=== PATIENT | female | born 1970 | race Caucasian/White ===

== ENCOUNTER 2025-02-17 10:53 | Inpatient (IN) | payer BC ==
[~2025-02-17] VITALS: Ht 167.6 cm; Wt 83.2 kg
[2025-02-17 12:09] LABS: MEAN PLATELET VOLUME 7.7 FL (7.4-10.4); RED CELL DISTRIBUTION WIDTH 15.7 % (11.5-14.5)
[2025-02-17 12:27] LABS: CREATININE 3.03 MG/DL (0.40-0.90); TOTAL CARBON DIOXIDE 24.1 MMOL/L (24-32); eCRCL 20 ML/MIN; eGFR 16 ML/MIN
[2025-02-17 12:56] LABS: PLATELET ESTIMATE NORMAL
[2025-02-17 12:57] LABS: LARGE PLATELETS FEW
[2025-02-17 14:24] LABS: LEUKOCYTE ESTERASE ,URINE LARGE (Neg); NITRITES, URINE NEGATIVE (Neg); OCCULT BLOOD,URINE SMALL (Neg)
--- NOTE | 2025-02-17 14:31 | Physician Documentation ---
History of Present Illness General Chief Complaint: Vomiting Stated Complaint: VOMITING Time Seen by MD: 14:30 OK to notify your PCP?: No Source: patient, RN notes reviewed Mode of Arrival: Ambulatory Exam Limitations: no limitations History of Present Illness Initial Comments 54 old female, with a history of GERD, presents complaining of nausea and vomiting after she eats for the last 2-3 weeks. She took a dose of Zofran last night with temporary improvement of nausea. She also has had burning pain in her esophagus after eating, described as really bad acid reflux. She denies any fever, abdominal pain, blood in her vomit, bloody or black stools, or lightheadedness. She denies history of cholecystectomy. Medication Reconciliation Allergies: Coded Allergies: No Known Allergies (Unverified , 02/17/25) Scheduled Amlodipine* (Norvasc*), 2 PO DAILY, (Reported) Levothyroxine Sodium* (Synthroid*), 112 MCG PO DAILY, (Reported) Progesterone,Micronized (Progesterone), 1 CAP PO HS, (Reported) Ramipril* (Altace*), 2 CAP PO DAILY, (Reported) Scheduled PRN Trazodone HCl (Trazodone HCl), 2 TAB PO HS PRN for sleep, (Reported) Past Medical History Past Medical History: *GI/HEPATOBILIARY*, GERD Past Surgical History: noncontributory Drug Use: none Lives In: Home Review of Systems All Other Systems at this time: Reviewed and Negative ROS As stated above in the HPI, otherwise all systems are reviewed and negative. Physical Exam Physical Exam Vital Signs: RN Vital Signs have been reviewed: Yes, Temperature: 97.0, Source: Temporal, Heart Rate: 88, Respiratory Rate: 18, BP: 98/59, Pulse Oximetry: 99, Weight: 83.180 Oxygen Flow Rate: 0 Pulse Oximetry Reflects: adequate oxygenation Physical Exam VITALS: Reviewed and as above. GENERAL: Alert, no apparent distress. HEENT: Normocephalic, atraumatic, PERRL, EOMI, dry mucosa RESPIRATORY: Lungs clear, normal breath sounds, no respiratory distress. CHEST: No accessory muscle use, no retractions CV: Regular rate, rhythm, no edema, no murmur, No: JVD GI: Epigastric tenderness. Soft, bowels sounds present, no rebound, guarding, or rigidity BACK: No CVA tenderness, or swelling MUSCULOSKELETAL No deformities, no edema SKIN: Warm and dry, no rash NEURO: Oriented x4, No motor or sensory deficit PSYCH: Normal mood and affect, no agitation Progress Progress Note 1506: Patient's reports patient has had two siblings of lymphoma. 1709: Case discussed with internal medicine resident, who agrees to evaluate the patient for admission. Results/Orders Reviewed/noted all lab results: Yes Results/Orders Orders - OHCHRISTINA JOHNSON MD Cult Urine + [place] Ct (02/17/25 14:40) Ct Abdomen Pelvis (02/17/25 14:54) Culture Blood (02/17/25 ) Chest,Single View (02/17/25 15:43) Ultrasound Of Abdomen (02/17/25 15:48) Page Hospitalist (02/17/25 16:50) Fill Out Med Reconciliation (02/17/25 16:50) Completed Orders - CHRISTINA GIANG MD Cbc/Diff (02/17/25 10:58) Lipase (02/17/25 10:58) CMP (02/17/25 10:58) Ua W/Microscopic, Cult If Ind (02/17/25 14:01) Ct Abdomen Pelvis (02/17/25 14:54) Ceftriaxone 2gm/D5w 50ml Bag (Rocephin 2 (02/17/25 14:45) Lacticsepsis (02/17/25 15:06) Normal Saline 1000ml (0.9% Sodium Chlori (02/17/25 15:35) Stat Ekg (02/17/25 ) Hs Troponin I W Calculations (02/17/25 15:41) Chest,Single View (02/17/25 15:43) Ultrasound Of Abdomen (02/17/25 15:48) Mag & Alum Hydrox/Simeth Susp (Maalox Or (02/17/25 17:10) Vital Signs 02/17/25 02/17/25 02/17/25 02/17/25 10:56 14:19 14:21 15:20 Temp 97.0 97.0 Pulse 99 88 90 Resp 18 14 18 18 B/P (MAP) 107/66 98/59 (72) 95/54 (68) Pulse Ox 98 99 99 O2 Flow Rate 0 0 0 1002/17/25 02/17/25 02/17/25 15:56 16:14 17:33 17:40 Temp 97.0 97.0 97.0 Pulse 91 86 90 Resp 15 12 18 B/P (MAP) 99/55 (70) 105/72 (83) 92/58 (69) 106/70 (82) Pulse Ox 96 100 98 O2 Flow Rate 0 0 0 Laboratory Tests Test 02/17/25 11:26 02/17/25 14:01 02/17/25 15:09 02/17/25 16:06 White Blood Count 13.2 H Red Blood Count 3.92 L Hemoglobin 15.2 Hematocrit 43.8 Mean Corpuscular Volume 111.7 H Mean Corpuscular Hemoglobin 38.9 H Mean Corpuscular Hemoglobin Concent 34.8 Red Cell Distribution Width 15.7 H Platelet Count 278 Mean Platelet Volume 7.7 Neutrophils (%) (Auto) 85.6 H Lymphocytes (%) (Auto) 6.9 L Monocytes (%) (Auto) 7.3 Eosinophils (%) (Auto) 0 Basophils (%) (Auto) 0.2 Neutrophils # (Auto) 11.3 H Lymphocytes # (Auto) 0.9 L Monocytes # (Auto) 1.0 H Eosinophils # (Auto) 0.0 Basophils # (Auto) 0.0 CBC Comment Platelet Estimate Normal Large Platelets Few Red Blood Cell Morphology Perf Polychromasia Basophilic Stippling Macrocytosis 2+ Sodium Level 134 L Potassium Level 3.7 Chloride Level 85 L Carbon Dioxide Level 24.1 Anion Gap 25 H Blood Urea Nitrogen 29 H Creatinine 3.03 H Estimated GFR/1.73 m2 16 BUN/Creatinine Ratio 9.6 L Glucose Level 137 H Calcium Level 9.5 Total Bilirubin 1.1 H Aspartate Amino Transf (AST/SGOT) 35 Alanine Aminotransferase (ALT/SGPT) 26 Alkaline Phosphatase 43 L Total Protein 8.2 Albumin 3.9 Globulin 4.3 Albumin/Globulin Ratio 0.9 L Lipase > 375 H Chemistry Comments Urine Specimen Description Cln catch midstream Urine Color Yellow Urine Clarity Turbid Urine pH 6.0 Urine Specific [place] 1.020 Urine Protein >=300 H Urine Glucose (UA) Negative Urine Ketones 15 H Urine Occult Blood Small Urine Nitrite Negative Urine Bilirubin Moderate Urine Urobilinogen 0.2 Urine Leukocyte Esterase Large H Urine RBC 3-10 Urine WBC Tntc H Urine Squamous Epithelial Cells Few Urine Bacteria 1+ Urine Culture Indicated Indicated Volume Urine Centrifuged 10 ml Urine Comment Lactic Acid Level 1.7 Troponin I High Sensitivity 8 Microbiology Date/Time Source Procedure Growth Status 02/17/25 14:40 Urine Clean Catch Midstream Urine Culture - Preliminary Gram Negative Gianfranco Resulted EKG/XRAY/CT/US/VASC/MRI EKG : Additional Comment 1536: EKG interpreted by myself to show NSR at a rate of 83bpm. Normal axis. Slight ST depression in II, III, aVF, V3-V6. Chest X-Ray : Additional Comments EXAM: DI CHEST,SINGLE VIEW HISTORY: hypotension COMPARISON: None TECHNIQUE: Portable upright AP view of the chest was performed. FINDINGS: No pneumothorax, consolidative infiltrates, or pulmonary edema. The heart is not enlarged. The aortic arch is calcific. IMPRESSION: No acute intrathoracic process. Reviewed by myself, Dr. Giang. CT : Interpreted By: radiologist CT: abdomen/pelvis With Contrast?: No Impression CLINICAL INFORMATION: 54 years old, Female; renal failure elevated wbc. TECHNIQUE: Axial CT images of the abdomen and pelvis were obtained without IV contrast. Coronal and sagittal reformatted images were obtained, reviewed, and stored. Evaluation of the parenchymal organs is limited without IV contrast. Evaluation of the bowel and mesentery is limited without oral contrast. All CT scans at this medical facility are performed using dose modulation techniques as appropriate to a performed exam including the following: Automated exposure control was utilized; adjustment of the MA and/or KV according to patient size; and use of iterative reconstruction technique. CTDIvol = 28.36 mGy DLP = 1554.77 mGy-cm COMPARISON: None FINDINGS: Lung bases: Lung bases are clear. Liver: Hepatic steatosis. Biliary: Distended gallbladder with punctate calcified gallstone visualized. No biliary ductal dilatation. Spleen: Unremarkable. Pancreas: Grossly unremarkable in its noncontrast enhanced appearance. Adrenal glands: Unremarkable. No mass. Kidneys: No hydronephrosis. Multiple bilateral renal calculi, including staghorn calculus in the lower pole of the left kidney measuring up to 1 cm in greatest dimension. No obstructing calculi visualized. Aorta/Vascular: Moderate arterial calcification. No abdominal aortic aneurysm. Lymph nodes: No mass or lymphadenopathy. Bowel/mesentery: Nonspecific nondilated fluid-filled small bowel loops. No small bowel obstruction. No free air. Small amount of free fluid in the pelvis. There is mild edema in the abdominal mesentery. Appendix is visualized and appears unremarkable. Pelvic organs: Grossly unremarkable. Bladder: Underdistended and not well evaluated. Abdominal wall: No mass or hernia. Bones: No acute fracture or suspicious intraosseous lesion. IMPRESSION: 1. Distended gallbladder with punctate calcified gallstone visualized. C orrelate with clinical findings. If clinically indicated, ultrasound could be obtained to further evaluate. 2. Hepatic steatosis. 3. Bilateral nonobstructing renal calculi. No hydronephrosis or obstructing calculi. 4. Nonspecific nondilated fluid-filled small bowel loops. Findings may be seen with ileus or enteritis in the appropriate clinical setting. No small bowel obstruction. 5. Mild edema in the abdominal mesentery, may be inflammatory in nature. Correlate with clinical findings. Small amount of free fluid in the pelvis. 6. Additional findings as described above. Reviewed by myself. Ultrasound : Interpreted By: radiologist Ultrasound of: abdomen Impression Technique: Real-time ultrasound imaging of the abdomen was performed with gr ayscale and color Doppler. Indication: abdominal pain Comparison: None Findings: Liver measures 18.9 cm. It is increased in echogenicity and echotexture without focal mass. Portal vein is normal in caliber and demonstrates normal hepatopetal flow. Gallbladder demonstrates cholelithiasis. There is also sludge. There is no pericholecystic fluid. The wall thickness is normal. The common bile duct measures 3 mm. No intrahepatic biliary ductal dilatation. The right kidney measures 10.1 cm. There is no hydronephrosis or sonographic evidence of nephrolithiasis. Pancreas is obscured. Impression: Cholelithiasis and sludge Echogenic liver which can be seen with hepatic steatosis, cirrhosis. Hepatomegaly Reviewed by myself (Dr. Giang) Medical Decision Making Additional information obtaine: old records (No prior visits to this ER) Findings The patient is a 54-year-old female who presents with the abdominal pain the patient has punctate gallstones but there was no evidence of obstruction based on her ultrasound and her labs, the patient also has renal insufficiency and acute kidney injury, the patient was hydrated in the emergency room she was given pain medication as well the patient has been discussed with the hospitalist service the patient's prior hospitalizations has been reviewed her pulse oximetry was interpreted as normal and adequate her imaging of the ultrasound as well as imaging of the CT scan were reviewed the patient will be admitted Differential Diagnosis Biliary colic, choledocholithiasis, cholangitis, enteritis, diverticulitis, gastritis Departure Time of Disposition: 16:50 Disposition: 09 ADMITTED INPATIENT Admitted to Inpatient Unit: yes, to hospitalist Impression: Primary Impression: Pancreatitis Qualified Codes: K85.90 - Acute pancreatitis without necrosis or infection, unspecified Additional Impressions: Renal failure Qualified Codes: N19 - Unspecified kidney failure UTI (urinary tract infection) Qualified Codes: N39.0 - Urinary tract infection, site not specified Condition: Fair Referrals: NO PRIMARY CARE PROVIDER (PCP) Critical Care Note Total Time (mins): 45 Critical Care Note Critical Care Time: 45 minutes Treatments/Evaluations: Close monitoring and treatment of unstable vital signs, cardiorespiratory, and neurologic status, while maintaining tight balance of fluid, respiratory, and cardiac interventions. This time includes discussing the case with the patient and the patient's family. This time does not include all procedures stated elsewhere in this record. This time also includes reviewing old records, labs and radiological studies. This time includes examining and re- examining the patient. Additionally, this time also includes arranging care with admitting and consulting physicians. Signature Scribe Signature: Scribed for Christina Giang MD by Naa Klein . 02/17/25 14:51 Attestation: The note accurately reflects work and decisions made by me.Christina Giang MD 02/18/25 17:45 CHRISTINA GIANG MD Feb 17, 2025 14:31 NAA MOREL Feb 17, 2025 14:58
[2025-02-17 14:40] LABS: UA COLLECTION TYPE CLN CATCH MIDSTREAM
[2025-02-17 14:41] LABS: SQUAMOUS EPITHELIAL CELL,UR FEW /LPF (FEW)
[2025-02-17] MEDS: CefTRIAXone 2gm/D5W 50ml BAG 50 ML IV ONE (15:14)
--- NOTE | 2025-02-17 15:39 | ELECTROCARDIOGRAPH REPORT ---
[facility] Test Date: 2025-02-17 Test Time: 15:36:28 Pat Name: ALISTAIR SANCHES Department: [facility]- Patient ID: [id number] Room: [place] [id number] Gender: F [employer]ldozer Operator: : [id number] Requested By: CHRISTINA DUFF Order Number: [id number] Reading MD: Dr. Gurjit Boucher Measurements Intervals [place] Rate: 83 P: 61 WI: 149 QRS: 69 QRSD: 94 T: 0 QT: 421 QTc: 495 Interpretive Statements Sinus rhythm Atrial premature complex Borderline repolarization abnormality Borderline prolonged QT interval Electronically Signed On 02-20-2025 7:41:[address] Gurjit Boucher Please click the below link to view image of tracing.
[2025-02-17] MEDS: normal saline 1000ML IV soln IVB ONE (15:41)
--- NOTE | 2025-02-17 15:46 | RADIOLOGY REPORT ---
CLINICAL INFORMATION: 54 years old, Female; renal failure elevated wbc. TECHNIQUE: Axial CT images of the abdomen and pelvis were obtained without IV contrast. Coronal and sagittal reformatted images were obtained, reviewed, and stored. Evaluation of the parenchymal organs is limited without IV contrast. Evaluation of the bowel and mesentery is limited without oral contrast. All CT scans at this medical facility are performed using dose modulation techniques as appropriate to a performed exam including the following: Automated exposure control was utilized; adjustment of the MA and/or KV according to patient size; and use of iterative reconstruction technique. CTDIvol = 28.36 mGy DLP = 1554.77 mGy-cm COMPARISON: None FINDINGS: Lung bases: Lung bases are clear. Liver: Hepatic steatosis. Biliary: Distended gallbladder with punctate calcified gallstone visualized. No biliary ductal dilatation. Spleen: Unremarkable. Pancreas: Grossly unremarkable in its noncontrast enhanced appearance. Adrenal glands: Unremarkable. No mass. Kidneys: No hydronephrosis. Multiple bilateral renal calculi, including staghorn calculus in the lower pole of the left kidney measuring up to 1 cm in greatest dimension. No obstructing calculi visualized. Aorta/Vascular: Moderate arterial calcification. No abdominal aortic aneurysm. Lymph nodes: No mass or lymphadenopathy. Bowel/mesentery: Nonspecific nondilated fluid-filled small bowel loops. No small bowel obstruction. No free air. Small amount of free fluid in the pelvis. There is mild edema in the abdominal mesentery. Appendix is visualized and appears unremarkable. Pelvic organs: Grossly unremarkable. Bladder: Underdistended and not well evaluated. Abdominal wall: No mass or hernia. Bones: No acute fracture or suspicious intraosseous lesion. IMPRESSION: 1. Distended gallbladder with punctate calcified gallstone visualized. Correlate with clinical findings. If clinically indicated, ultrasound could be obtained to further evaluate. 2. Hepatic steatosis. 3. Bilateral nonobstructing renal calculi. No hydronephrosis or obstructing calculi. 4. Nonspecific nondilated fluid-filled small bowel loops. Findings may be seen with ileus or enteritis in the appropriate clinical setting. No small bowel obstruction. 5. Mild edema in the abdominal mesentery, may be inflammatory in nature. Correlate with clinical findings. Small amount of free fluid in the pelvis. 6. Additional findings as described above.
--- NOTE | 2025-02-17 16:20 | RADIOLOGY REPORT ---
EXAM: DI CHEST,SINGLE VIEW HISTORY: hypotension COMPARISON: None TECHNIQUE: Portable upright AP view of the chest was performed. FINDINGS: No pneumothorax, consolidative infiltrates, or pulmonary edema. The heart is not enlarged. The aortic arch is calcific. IMPRESSION: No acute intrathoracic process.
--- NOTE | 2025-02-17 17:08 | RADIOLOGY REPORT ---
Technique: Real-time ultrasound imaging of the abdomen was performed with grayscale and color Doppler. Indication: abdominal pain Comparison: None Findings: Liver measures 18.9 cm. It is increased in echogenicity and echotexture without focal mass. Portal vein is normal in caliber and demonstrates normal hepatopetal flow. Gallbladder demonstrates cholelithiasis. There is also sludge. There is no pericholecystic fluid. The wall thickness is normal. The common bile duct measures 3 mm. No intrahepatic biliary ductal dilatation. The right kidney measures 10.1 cm. There is no hydronephrosis or sonographic evidence of nephrolithiasis. Pancreas is obscured. Impression: Cholelithiasis and sludge Echogenic liver which can be seen with hepatic steatosis, cirrhosis. Hepatomegaly
[2025-02-17] MEDS: mag hydrox/Alum hydrox/simeth 30ml oral suspension PO ONE (17:30)
[2025-02-17] MEDS ORDERED: mag hydrox/Alum hydrox/simeth 30ml oral suspension PO PRN (17:45)
[2025-02-17] MEDS ORDERED: magnesium hydroxide 30ml (MOM) UD suspension PO PRN (17:45)
[2025-02-17] MEDS ORDERED: magnesium sulf-water 2g/50mL 50 ML IV PRN (17:45)
[2025-02-17] MEDS ORDERED: ondansetron/PF 4mg/2ml inj IV PRN (17:45)
[2025-02-17] MEDS ORDERED: magnesium sulf-water 4G/100mL 100 ML IV PRN (17:45)
[2025-02-17] MEDS ORDERED: magnesium Cl slow-release 64mg tablet PO PRN (17:45)
[2025-02-17] MEDS: normal saline 1000ml 1,000 ML IV SCH (18:15)
--- NOTE | 2025-02-17 18:25 | HISTORY AND PHYSICAL-Residence ---
History & Physical Providers to CC Resident Creating Document: DARCY GREGORIO, MICKY ~ History of Present Illness Reason for Admit\Complaint: Vomiting History of Present Illness 54-year-old female with history of hyperlipidemia, hypertension, kidney stones, stress incontinence, hypothyroidism came to the ED with complaints of nausea and vomiting for the past 2 weeks. She states that she has had 3-4 episodes of vomiting everyday and has not been able to keep anything down due to nausea, which has worsened in the past few days. She states that the vomit is clear and mildly yellow. She has heartburn for the past 2 weeks. She denies eating outside, recent travel, sick contacts, recent change in medications. She is an alcoholic and takes 1-2 drinks per day since 2019 and the last drink was 4 days ago. She denies abdominal pain. She states that she feels dizzy due to weakness and denies falls. She has been having chills. She states that her urine output is normal but has horrible odour and is cloudy. she denies burning micturition, frequency, urgency. She states that she has history of kidney stones and had a sling surgery for incontinence. She denies back pain, chest pain, palpitations, shortness of breath, swelling or pain in legs, headache, confusion. Her primary care physician is Dr. Yanci Lujan. She lives with her at home and she ambulates independently. Allergies: Coded Allergies: No Known Allergies (Unverified , 02/17/25) Past Medical History Past Medical History Hyperlipidemia Hypothyroidism Hypertension Kidney stones Stress urinary incontinence Past Surgical History Surgical History Comment Sling surgery for urinary incontinence Family history Past Social History Social History Comment She has 1-2 drinks of alcohol per day since 2019, the last she drank was 4 days ago She has been vaping everyday since past 4 years She is a nonsmoker She lives with her at home She ambulates independently Her primary care physician is Dr. Yanci Lujan Family history Non-Hodgkin's lymphoma diagnosed in both her sisters Drug Use: None Lives In: Home ROS All Other Systems: Reviewed and Negative ROS Constitutional: Reports fever, chills, dizziness, No weight gain or loss Eyes: No pain, erythema, discharge, blurring of vision ENT: No sore throat, epistaxis, tinnitus Cardiovascular:No chest pain, palpitations, syncope, lower extremity edema, paroxysmal nocturnal dyspnea Respiratory: No Shortness of breath and cough, No hemoptysis. Gastrointestinal: Reports vomiting,nausea, heartburn, constipation, No Abdominal pain, diarrhea. No appetite. No hematemesis or melena. Musculoskeletal: No Swelling, pain in bilateral lower legs. Integumentary: No change in skin, hair, nails. No swelling, bruising, abrasions Neurologic: No headache, neck pain, numbness or tingling of the extremities, Psychiatric: No delusions, depression, loss of interest in normal activity or change in sleep pattern, hallucinations, suicidal ideations Endocrine: Reports weakness, No polydipsia, polyuria, change in appetite, heat or cold intolerance, sweating, dry skin Hematological: No bleeding, petechiae, bruising Allergies: No asthma or urticaria Exam Vitals: Vital Signs Date Time Temp Pulse Resp B/P (MAP) Pulse Ox O2 Delivery O2 Flow Rate FiO2 02/17/25 17:40 106/70 (82) 02/17/25 17:33 97.0 90 18 98 0 General: Awake , alert, and oriented x4, obese, resting in the bed, in mild distress HEENT: Atraumatic, normocephalic, EOMI, anicteric sclera ; pink conjunctiva, dry mucous membranes Neck: Trachea midline. Supple, full range of motion, no JVD Cardiac: Tachycardic, Regular rhythm with no murmurs all over the precordium. Respiratory: Equal breath sounds bilaterally, no tachypnea, no wheezing ,rub or rales, Chest wall is symmetric and without deformity. Gastrointestinal: Abdomen symmetric, non-distended, soft, mild tenderness on palpation of epigastric and left upper and lower quadrants, hyperactive bowel sounds, No masses Musculoskeletal: No pedal edema, no cyanosis Neurological: Speech is clear, alert, and oriented x 4. No motor or sensory deficit, deep tendon reflexes normal, cerebellar intact. Cranial nerves II-XII intact. Skin: Warm and dry, reduced skin turgor Diagnostic Data Last Recorded Lab Results: 02/17/25 1126 02/17/25 1126 Advance Care Planning Advanced Care plannin - 30 Minutes (Full code) Additional Plan 54-year-old female with history of hypertension, hyperlipidemia, hypothyroidism, kidney stone came to the ED with complaints of nausea and vomiting and admitted for evaluation of pancreatitis, UTI and LEANA. Intractable nausea and vomiting most likely 2/2 possible acute pancreatitis Tachycardic and hypotensive due to dehydration WBC is elevated 13.2 - leukocytosis with neutrophilic predominance of 85.6% Lipase is elevated- >375 Abdomen/pelvis CT shows unremarkable pancreas. Other causes of nonspecific elevation of lipase are LEANA, CKD, hypotension causing ischemic injury to pancreas, opioids MCV is 111.7, patient is alcoholic Patient has hyperlipidemia, follow up lipid panel Calcium is normal Abdomen ultrasound shows cholelithiasis and sludge, hepatomegaly and echogenic liver which can be seen with hepatic steatosis, cirrhosis AST and ALT are normal Follow up urine tox Plan: Patient is NPO She received 2 boluses of NS and 1 bolus of LR Started on NS at 150 mL/hour Started on IV Protonix 40 mg daily and Zofran UTI Leukocytosis secondary to above SIRS criteria negative Urinalysis is positive for UTI Started on empiric antibiotic- IV ceftriaxone 1 g, we will escalate or deescalate antibiotic based on urine culture Possible enteritis Abdomen/pelvis CT shows nonspecific nondilated fluid-filled small bowel loops, which can be seen with ileus or enteritis. No small bowel obstruction Started IV metronidazole 500 mg b.i.d. Renal calculi Abdomen/pelvis CT shows multiple bilateral renal calculi, including staghorn calculus in the lower pole of the left kidney measuring up to 1 cm in greatest dimension with no hydronephrosis Patient is asymptomatic Follow up outpatient LEANA vs CKD Creatinine is elevated 3.03, baseline creatinine is unknown BUN is elevated 29, BUN/Cr is low-9.6 Follow up urine lytes Started NS at 150 mL/hour Follow up BNP Severe dehydration secondary to vomiting Patient is tachycardic and hypotensive She was given 2 L NS and 1 L LR Started on NS at 150 mL/hour Follow up BNP Cholelithiasis Abdominal ultrasound shows gallbladder with cholelithiasis and sludge, wall thickness is normal, CBD measures 3 mm and there is no intrahepatic biliary ductal dilation. Total bilirubin is mildly elevated 1.1 Follow up direct bilirubin Alkaline phosphatase is 43 There is no evidence of cholecystitis Alcohol abuse MCV-111.7, H&H is normal Follow up ethyl alcohol and urine tox Follow up vitamin B12 shared services and outsourcing manager and substance abuse navigator consulted Alcohol withdrawal protocol in place Hyperlipidemia Follow up lipid panel Pending med reconciliation Hypertension Blood pressure is on the soft side due to dehydration Pending med reconciliation Hypothyroidism Follow up TSH Pending med reconciliation I spent a total of 18 minutes reviewing various resuscitative measures/ACP with the patient. The patient decided to be full code. Code status: Full code DVT prophylaxis: SCD GI prophylaxis: IV Protonix 40 mg Pain management: Acetaminophen Diet/nutrition: NPO Prognosis: Guarded Disposition: Continue medical management, PT eval and DC plan Resident attestation: The patient note has been reviewed and supervised by senior residents PGY-2/ PGY-3. Patient was seen, examined and discussed with attending physician. Darcy Gregorio MD Internal Medicine resident, PGY-1 Date of Service: Feb 17, 2025 Billing Provider: ILEANA GROVER MD,DARCY, RES Feb 17, 2025 18:25
[2025-02-17 18:57] LABS: APTT 23 SECONDS (22-32); INR 1.1 INR
[2025-02-17 19:01] LABS: CREATININE 2.89 MG/DL (0.40-0.90); PHOSPHORUS 2.6 MG/DL (2.3-4.5); TOTAL CARBON DIOXIDE 25.1 MMOL/L (24-32); eCRCL 21 ML/MIN; eGFR 17 ML/MIN
[2025-02-17 19:03] LABS: OSMOLALITY 297 MOSM/K (280-300)
[2025-02-17] MEDS: ringers solution, lacted 1,000 ML IV ONE (19:03)
[2025-02-17 19:10] LABS: ETHANOL < 10 MG/DL (<10); PRO BRAIN NATRIURETIC PEPTIDE 145 PG/ML (0-125)
[2025-02-17] MEDS: metroNIDAZOLE-Flagyl 500mg/NS 100 ML IV SCH (19:10)
[2025-02-17] MEDS: K and/or MAG REPLACEMENT MC SCH (20:00)
[2025-02-17 20:50] VITALS: BP 103/69; PULSE 86; RESP 16; TEMP 98.6; O2SAT 99
[2025-02-17 22:00] VITALS: BP 95/60; PULSE 80; RESP 13; TEMP 97.4; O2SAT 96
[2025-02-18] MEDS: docusate sod 100mg capsule PO SCH (00:55)
[2025-02-18] MEDS: potassium Cl 20 mEq SR tablet PO PRN (00:55)
[2025-02-18] MEDS: thiamine 100mg/ml 2ml inj. IV SCH (00:55)
[2025-02-18] MEDS ORDERED: SYN0.088T PO (05:13)
[2025-02-18] MEDS ORDERED: PROG200C11 PO (05:14)
[2025-02-18] MEDS ORDERED: TRAZ-251 PO (05:15)
[2025-02-18] MEDS ORDERED: RAMI5CAP71 PO (05:16)
[2025-02-18] MEDS ORDERED: AMLO2.5T2 PO (05:17)
[2025-02-18 06:00] VITALS: BP 85/49; PULSE 78; RESP 16; TEMP 98.2; O2SAT 96
[2025-02-18 06:11] LABS: CHOL/HDL RATIO 2.0 (0.00-4.99); CREATININE 2.31 MG/DL (0.40-0.90); LDL CHOLESTEROL 36 MG/DL (50-100); TOTAL CARBON DIOXIDE 24.9 MMOL/L (24-32); eCRCL 26 ML/MIN; eGFR 22 ML/MIN
[2025-02-18 06:16] LABS: MEAN PLATELET VOLUME 7.5 FL (7.4-10.4); RED CELL DISTRIBUTION WIDTH 15.6 % (11.5-14.5)
[2025-02-18] MEDS: folic acid 1mg/0.2ml inj IV SCH (07:51)
[2025-02-18] MEDS: CefTRIAXone/D5W-Rocephin 1gm 50 ML IV SCH (07:51)
[2025-02-18] MEDS: nicotine 21mg patch - 24 hr TD SCH (07:51)
[2025-02-18 08:00] VITALS: RESP 16
[2025-02-18 09:28] LABS: LACTATE DEHYDROGENASE 148 U/L (81-234)
[2025-02-18 10:00] VITALS: BP 97/66; PULSE 71; RESP 15; TEMP 98.2; O2SAT 96
--- NOTE | 2025-02-18 12:39 | PROGRESS NOTE- Residence ---
Progress Note - Resident Providers to CC Resident Creating Document: DARCY GREGORIO RES ~ Antibiotic Timeout Antibiotic Ordered?: Yes Subjective Patient was seen and examined bedside. She denies further episodes of vomiting. She denies abdominal pain, fever, chills. No new overnight complaints reported. She has not had a bowel movement today and her last bowel movement was approximately 2 and half weeks ago. Objective Vital Signs Date Time Temp Pulse Resp B/P (MAP) Pulse Ox O2 Delivery O2 Flow Rate FiO2 02/18/25 10:00 98.2 71 15 97/66 (76) 96 Room Air 02/17/25 21:07 0.0 Result Diagram: 02/18/25 0452 02/18/25 045 Awake , alert, and oriented x4, resting comfortably in the bed, in no acute distress HEENT: Atraumatic, normocephalic, EOMI, anicteric sclera ; pink conjunctiva Neck: Trachea midline. Supple, full range of motion, no JVD Cardiac: Regular rhythm, regular rate with no murmurs all over the precordium. Respiratory: Equal breath sounds bilaterally, no tachypnea, no wheezing ,rub or rales, Chest wall is symmetric and without deformity. Gastrointestinal: Abdomen symmetric, non-distended, soft, mild tenderness on deep palpation of epigastric and right upper and lower quadrants, normal bowel sounds, no masses Musculoskeletal: No pedal edema, no cyanosis Neurological: Speech is clear, alert, and oriented x 4. No motor or sensory deficit, deep tendon reflexes normal, cerebellar intact. Cranial nerves II-XII intact. Skin: Warm and dry Coagulation Studies Laboratory Tests Test 02/17/25 18:28 Prothrombin Time 11.0 SECONDS (9.0-12.0) INR International Normalized Ratio 1.1 INR Activated Partial Thromboplast Time 23 SECONDS (22-32) Coagulation Comments Assessment Assessment 54-year-old female with history of hyperlipidemia, hypertension, kidney stones, stress incontinence and hypothyroidism came to the ED with complaints of nausea and vomiting for 2 weeks and was admitted for evaluation of acute pancreatitis, UTI and LEANA Plan Plan Intractable nausea and vomiting most likely 2/2 possible acute pancreatitis Tachycardic and hypotensive due to dehydration WBC is elevated 13.2 - leukocytosis with neutrophilic predominance of 85.6% Lipase is elevated- >375 Abdomen/pelvis CT shows unremarkable pancreas. Other causes of nonspecific elevation of lipase are LEANA, CKD, hypotension causing ischemic injury to pancreas, opioids MCV is 111.7, patient is alcoholic Triglycerides are normal - 95 Total cholesterol is 133 Lipid panel is normal Calcium is normal Abdomen ultrasound shows cholelithiasis and sludge, hepatomegaly and echogenic liver which can be seen with hepatic steatosis, cirrhosis AST and ALT are normal Follow up urine tox Plan: Patient is NPO She received 2 boluses of NS and 1 bolus of LR Started on NS at 150 mL/hour Started on IV Protonix 40 mg daily and Zofran 02/18/25 Patient denies further episodes of vomiting, denies abdominal pain Lipase has trended down to 238 WBC trended down to 7.8 Patient started on regular diet Continue IV Protonix 40 mg daily and Zofran Continue NS at 100 mL/hour UTI Leukocytosis secondary to above SIRS criteria negative Urinalysis is positive for UTI Started on empiric antibiotic- IV ceftriaxone 1 g, we will escalate or deescalate antibiotic based on urine culture 02/18/25 Urine cultures show Gram-negative rods Continue IV ceftriaxone 1 g-day 2, we will adjust based on sensitivity report Possible enteritis Abdomen/pelvis CT shows nonspecific nondilated fluid-filled small bowel loops, which can be seen with ileus or enteritis. No small bowel obstruction Started IV metronidazole 500 mg b.i.d. 02/18/25: WBC has trended down to 7.8 Continue IV metronidazole 500 mg b.i.d. Renal calculi Abdomen/pelvis CT shows multiple bilateral renal calculi, including staghorn calculus in the lower pole of the left kidney measuring up to 1 cm in greatest dimension with no hydronephrosis Patient is asymptomatic Follow up outpatient LEANA vs CKD Creatinine is elevated 3.03, baseline creatinine is unknown BUN is elevated 29, BUN/Cr is low-9.6 Follow up urine lytes Started NS at 150 mL/hour Follow up BNP 02/18/25: Creatinine has trended down to 2.31 BUN is 26, BUN/Cr is normal Follow up urine lytes Continue NS at 100 mL/hour BNP is 145 Severe dehydration secondary to vomiting Patient is tachycardic and hypotensive She was given 2 L NS and 1 L LR Started on NS at 150 mL/hour Follow up BNP 02/18/25 Blood pressure is on the soft side Continue NS at 100 mL per hour Cholelithiasis Abdominal ultrasound shows gallbladder with cholelithiasis and sludge, wall thickness is normal, CBD measures 3 mm and there is no intrahepatic biliary ductal dilation. Total bilirubin is mildly elevated 1.1 Follow up direct bilirubin Alkaline phosphatase is 43 There is no evidence of cholecystitis 02/18/25: Total bilirubin is 0.7 Direct bilirubin is 0.3 Patient has no abdominal pain Alcohol abuse MCV-111.7, H&H is normal Follow up ethyl alcohol and urine tox Follow up vitamin B12 services engineer and substance abuse navigator consulted Alcohol withdrawal protocol in place Hypertension Blood pressure is on the soft side due to dehydration Held her home medication amlodipine 2.5 mg and ramipril 10 mg Hypothyroidism TSH is normal Continued her home medication levothyroxine 88 mcg I spent a total of 18 minutes reviewing various resuscitative measures/ACP with the patient. The patient decided to be full code. Code status: Full code DVT prophylaxis: SCD GI prophylaxis: IV Protonix 40 mg Pain management: Acetaminophen Diet/nutrition: Regular diet Prognosis: Guarded Disposition: Continue medical management, PT eval and DC plan Resident MD attestation: The patient note has been reviewed and supervised by senior residents PGY-2/ PGY-3. Patient was seen, examined and discussed with attending physician. Darcy Gregorio MD Internal Medicine resident, PGY-1 Date of Service: Feb 18, 2025 Billing Provider: ILEANA GROVER MD,DARCY, RES Feb 18, 2025 12:39
[2025-02-18 18:00] VITALS: BP 85/54; PULSE 81; RESP 16; TEMP 98.3; O2SAT 96
--- NOTE | 2025-02-18 18:38 | CARDIOLOGY REPORT ---
APPROVED REPORT EXAM: Comprehensive 2D, Doppler, and color-flow Echocardiogram. Patient Location: [facility] [place] Blood Pressure: 106/70 mmHg Heart Rate: 72 bpm Indications Valvular Heart Disease GERD NO PUBLIC ACCOUNTANT NO Previous ECHO 2D Dimensions LA Diam 3.2 cm IVSd 1.3 (0.7-1.1cm) LVDd 3.1 cm PWd 1.5 (0.7-1.1cm) IVSs 1.7 (0.8-1.2cm) LVDs 2.0 (2.5-4.0cm) PWs 1.4 (0.8-1.2cm) LVOT Diameter 1.98 (1.8-2.4cm) LVEF(%) 66.3 (>50%) Ao Asc Diam. 3.23 cm IVC 19.04 mm FS (%) 35.3 % SV 24.2 ml CO 1.7 L/min M-Mode Dimensions Left Atrium(MM) 4.65 (2.5-4.0cm) Aortic Root 2.92 (2.2-3.7cm) Aortic Cusp Exc 2.06 (1.5-2.0cm) MV EPSS 0.0 (<0.5cm) Aortic Valve AoV Peak Dimitrios. 174.4 cm/s AoV VTI 31.4 cm AO Peak GR. 12.2 mmHg AO Mean GR. 7 mmHg LVOT VTI 28.36 cm LVOT Peak Dimitrios. 146.1 cm/s KATHERINE(VTI)/BSA 2.78 cm2/m2 KATHERINE (VTI) 2.78 cm2 AV DI 0.90 % Mitral Valve MV E Velocity 73.3 cm/s MV Peak Gr. 3 mmHg MV DECEL TIME 236 ms MV A Velocity 95.9 cm/s MV PHT 68 ms E/A Ratio 0.8 MVA (PHT) 3.24 cm2 MV VMax 87.5 cm/s TDI Lateral E' P. V 12.94 cm/s Medial E' P. V 14.97 cm/s E/Lateral E' 5.7 E/Medial E' 4.9 Tricuspid Valve TR P. Velocity 151 cm/s RAP ESTIMATE 10 mmHg TR Peak Gr. 9 mmHg RVSP 19 mmHg LEFT VENTRICLE Normal LV size and function. Mild concentric hypertrophy. LVEF is 65-70%. RIGHT VENTRICLE Right ventricle is mildly dilated with normal contractility. ATRIA The left atrium size is normal. AORTIC VALVE Trileaflet AV appears mildly sclerotic without stenosis. No insufficiency. MITRAL VALVE Mild mitral annular calcification without stenosis. Trace regurgitation. TRICUSPID VALVE The tricuspid valve is normal in structure with trace regurgitation. PULMONIC VALVE The pulmonary valve is normal in structure with physiologic insufficiency. GREAT VESSELS The aortic root is normal in size. The ascending aorta is normal in size. The IVC is normal in size and collapses >50% with inspiration. PERICARDIUM Normal pericardium. No effusion. Other Information Study Quality: Adequate Conclusion Normal LV size and function. Mild concentric hypertrophy. LVEF is 65-70%. Right ventricle is mildly dilated with normal contractility. The left atrium size is normal. Trileaflet AV appears mildly sclerotic without stenosis. No insufficiency. Mild mitral annular calcification without stenosis. Trace regurgitation. The tricuspid valve is normal in structure with trace regurgitation. Normal pericardium. No effusion.
[2025-02-18 22:00] VITALS: BP 96/58; PULSE 84; RESP 16; TEMP 98.4; O2SAT 94
[2025-02-19 00:51] LABS: CREATININE,URINE RANDOM 77.0 MG/DL; TOTAL PROTEIN,URINE RANDOM 45.8 MG/DL
[2025-02-19 00:55] LABS: URINE AMPHETAMINE SCREEN NEGATIVE (Neg); URINE BARBITUATE SCREEN NEGATIVE (Neg); URINE BENZODIAZEPINES SCREEN NEGATIVE (Neg); URINE CANNABINOID SCREEN NEGATIVE (Neg); URINE COCAINE SCREEN NEGATIVE (Neg); URINE METHADONE SCREEN NEGATIVE (Neg); URINE OPIATE SCREEN NEGATIVE (Neg); URINE PHENCYCLIDINE SCREEN NEGATIVE (Neg)
[2025-02-19 00:57] LABS: LEUKOCYTE ESTERASE ,URINE MODERATE (Neg); NITRITES, URINE NEGATIVE (Neg); OCCULT BLOOD,URINE NEGATIVE (Neg)
[2025-02-19 00:58] LABS: UA COLLECTION TYPE NON-SPECIFIED
[2025-02-19 00:59] LABS: OSMOLALITY UA 385.0 MOSM/K (50-1400)
[2025-02-19 01:15] LABS: SQUAMOUS EPITHELIAL CELL,UR MODERATE /LPF (FEW)
[2025-02-19 05:49] LABS: MEAN PLATELET VOLUME 7.3 FL (7.4-10.4); RED CELL DISTRIBUTION WIDTH 15.6 % (11.5-14.5)
[2025-02-19 05:55] LABS: CREATININE 1.33 MG/DL (0.40-0.90); TOTAL CARBON DIOXIDE 25.5 MMOL/L (24-32); eCRCL 45 ML/MIN; eGFR 41 ML/MIN
[2025-02-19 06:00] VITALS: BP 113/79; PULSE 71; RESP 14; TEMP 98.1; O2SAT 97
[2025-02-19 08:00] VITALS: RESP 16
[2025-02-19] MEDS: levoTHYROXINE 112mcg tablet PO SCH (08:07)
[2025-02-19] MEDS: pantoprazole 40mg Tablet.DR PO SCH (08:07)
[2025-02-19] MEDS: potassium Cl 20 mEq SR tablet PO PRN (08:07)
[2025-02-19] MEDS ORDERED: Potassium Cl inj 40 MEQ in normal saline 500ml IV soln 500 ML IV STA (08:10)
[2025-02-19 10:00] VITALS: BP 115/73; PULSE 74; RESP 17; TEMP 97.9; O2SAT 97
[2025-02-19] MEDS ORDERED: Potassium Cl inj 40 MEQ in normal saline 500ml IV soln 500 ML IV SCH (10:00)
[2025-02-19] MEDS: potassium Cl 40MEQ/1/2NS 520ml 520 ML IV PRN (10:23)
[2025-02-19] MEDS: polyethylene glycol 3350 17gm powd pack PO STA (10:38)
[2025-02-19 11:17] LABS: CREATININE 1.30 MG/DL (0.40-0.90); TOTAL CARBON DIOXIDE 26.0 MMOL/L (24-32); eCRCL 46 ML/MIN; eGFR 43 ML/MIN
[2025-02-19] MEDS: magnesium sulf-water 2g/50mL 50 ML IV ONE (13:32)
--- NOTE | 2025-02-19 14:41 | PROGRESS NOTE ---
Progress Note ID Providers to CC ~ Progress Note Progress Note: pt seen-she would like to postpone mónica and see if symptoms resolve with cessation of etoh-will followup with me in office ÁLVARO HALL MD Feb 19, 2025 14:41
[2025-02-19 17:05] LABS: OCCULT BLOOD STOOL NEGATIVE (Neg)
[2025-02-19 18:00] VITALS: BP 91/66; PULSE 73; RESP 16; TEMP 97.6; O2SAT 97
[2025-02-19] MEDS ORDERED: diazepam inj 5 MG/ML inj. IV PRN ×2 (19:30)
--- NOTE | 2025-02-19 20:23 | PROGRESS NOTE- Residence ---
Progress Note - Resident Providers to CC Resident Creating Document: DARCY GREGORIO RES ~ Antibiotic Timeout Antibiotic Ordered?: Yes Subjective Patient was seen and examined bedside. She denies further episodes of vomiting. She denies abdominal pain, fever, chills. No new overnight complaints reported. She has not had a bowel movement today and her last bowel movement was approximately 2 and half weeks ago. Objective Vital Signs Date Time Temp Pulse Resp B/P (MAP) Pulse Ox O2 Delivery O2 Flow Rate FiO2 02/19/25 18:00 97.6 73 16 91/66 (74) 97 Room Air 02/18/25 20:00 0.0 Result Diagram: 02/19/25 0455 02/19/25 1056 Awake , alert, and oriented x4, resting comfortably in the bed, in no acute distress HEENT: Atraumatic, normocephalic, EOMI, anicteric sclera ; pink conjunctiva Neck: Trachea midline. Supple, full range of motion, no JVD Cardiac: Regular rhythm, regular rate with no murmurs all over the precordium. Respiratory: Equal breath sounds bilaterally, no tachypnea, no wheezing ,rub or rales, Chest wall is symmetric and without deformity. Gastrointestinal: Abdomen symmetric, non-distended, soft, no tenderness, normal bowel sounds, no masses Musculoskeletal: No pedal edema, no cyanosis Neurological: Speech is clear, alert, and oriented x 4. No motor or sensory deficit, deep tendon reflexes normal, cerebellar intact. Cranial nerves II-XII intact. Skin: Warm and dry Coagulation Studies Laboratory Tests Test 02/17/25 18:28 Prothrombin Time 11.0 SECONDS (9.0-12.0) INR International Normalized Ratio 1.1 INR Activated Partial Thromboplast Time 23 SECONDS (22-32) Coagulation Comments Assessment Assessment 54-year-old female with history of hyperlipidemia, hypertension, kidney stones, stress incontinence and hypothyroidism came to the ED with complaints of nausea and vomiting for 2 weeks and was admitted for evaluation of acute pancreatitis, UTI and LEANA Plan Plan Intractable nausea and vomiting 2/2 acute pancreatitis Tachycardic and hypotensive due to dehydration WBC is elevated 13.2 - leukocytosis with neutrophilic predominance of 85.6% Lipase is elevated- >375 Abdomen/pelvis CT shows unremarkable pancreas. Patient has no abdominal pain, but has intractable nausea and vomiting MCV is 111.7, patient is alcoholic Triglycerides are normal - 95 Total cholesterol is 133 Lipid panel is normal Calcium is normal Abdomen ultrasound shows cholelithiasis and sludge, hepatomegaly and echogenic liver which can be seen with hepatic steatosis, cirrhosis She might have had gallstone pancreatitis with passing of stone as CBD is 3 mm AST and ALT are normal Plan: Patient is NPO She received 2 boluses of NS and 1 bolus of LR Started on NS at 150 mL/hour Started on IV Protonix 40 mg daily and Zofran 02/18/25 Patient denies further episodes of vomiting, denies abdominal pain Lipase has trended down to 238 WBC trended down to 7.8 Patient started on regular diet Continue IV Protonix 40 mg daily and Zofran Continue NS at 100 mL/hour 02/19/25 Lipase has trended up to >375 Amylase is elevated to 58 Patient started on clear liquid diet Continue NS at 100 mL/hour Continue IV Protonix 40 mg daily We will adjust diet according to her tolerance tomorrow Cholelithiasis Possible gallstone pancreatitis Patient may have passed the stone Abdominal ultrasound shows gallbladder with cholelithiasis and sludge, wall thickness is normal, CBD measures 3 mm and there is no intrahepatic biliary ductal dilation. Total bilirubin is mildly elevated 1.1 Follow up direct bilirubin Alkaline phosphatase is 43 There is no evidence of cholecystitis 02/18/25: Total bilirubin is 0.7 Direct bilirubin is 0.3 Patient has no abdominal pain 02/19/25 Total bilirubin is 0.3 Alkaline phosphatase is 31 Dr. Mayo was consulted for possible cholecystectomy. He states that the patient would like to postpone cholecystectomy and see if symptoms resolve with cessation of alcohol and she will follow up with him outpatient UTI Leukocytosis secondary to above SIRS criteria negative Urinalysis is positive for UTI Started on empiric antibiotic- IV ceftriaxone 1 g, we will escalate or deescalate antibiotic based on urine culture 02/18/25 Urine cultures show Gram-negative rods Continue IV ceftriaxone 1 g-day 2, we will adjust based on sensitivity report 02/19/25 Urine cultures show E coli sensitive to ceftriaxone Continue IV ceftriaxone 1 g-day 3 Possible enteritis Abdomen/pelvis CT shows nonspecific nondilated fluid-filled small bowel loops, which can be seen with ileus or enteritis. No small bowel obstruction Started IV metronidazole 500 mg b.i.d. 02/18/25: WBC has trended down to 7.8 Continue IV metronidazole 500 mg b.i.d. 02/19/25 WBC is 4.7 Continue IV metronidazole 500 mg b.i.d. MiraLax was given Renal calculi Abdomen/pelvis CT shows multiple bilateral renal calculi, including staghorn calculus in the lower pole of the left kidney measuring up to 1 cm in greatest dimension with no hydronephrosis Patient is asymptomatic Follow up outpatient LEANA due to prerenal, dehydration Vasomotor nephropathy Creatinine is elevated 3.03, baseline creatinine is unknown BUN is elevated 29, BUN/Cr is low-9.6 Follow up urine lytes Started NS at 150 mL/hour Follow up BNP 02/18/25: Creatinine has trended down to 2.31 BUN is 26, BUN/Cr is normal Follow up urine lytes Continue NS at 100 mL/hour BNP is 145 02/19/25: Creatinine has been trending down, currently at 1.3 BUN has trended down to 14 Fena is 2.1% which shows intrinsic renal failure, but since creatinine has been improving with fluids, it is prerenal LEANA Continue NS at 100 mL/hour Severe dehydration secondary to vomiting Patient is tachycardic and hypotensive She was given 2 L NS and 1 L LR Started on NS at 150 mL/hour Follow up BNP 02/18/25 Blood pressure is on the soft side Continue NS at 100 mL per hour 02/19/25 Blood pressure is on the soft side Continue NS at 100 mL/hour Alcohol abuse Severe gastritis due to chronic alcohol ingestion Hepatic steatosis MCV-111.7, H&H is normal Ethyl alcohol< 10 Urine toxicology is negative environmental services associate and substance abuse navigator consulted Alcohol withdrawal protocol in place Hypokalemia 02/19/25- Potassium is 2.8, magnesium is 1.6 IV 40 mEq potassium was given IV magnesium 2 gm was given Monitor BMP Hypertension Blood pressure is on the soft side due to dehydration Held her home medication amlodipine 2.5 mg and ramipril 10 mg Hypothyroidism TSH is normal Continued her home medication levothyroxine 88 mcg I spent a total of 18 minutes reviewing various resuscitative measures/ACP with the patient. The patient decided to be full code. Code status: Full code DVT prophylaxis: SCD GI prophylaxis: IV Protonix 40 mg Pain management: Acetaminophen Diet/nutrition: Clear liquid diet Prognosis: Guarded Disposition: Continue medical management, PT eval and DC plan Resident MD attestation: The patient note has been reviewed and supervised by senior residents PGY-2/ PGY-3. Patient was seen, examined and discussed with attending physician. Darcy Gregorio MD Internal Medicine resident, PGY-1 Date of Service: Feb 19, 2025 Billing Provider: ILEANA GROVER MD,DARCY, RES Feb 19, 2025 20:23
[2025-02-19 22:26] VITALS: BP 136/85; PULSE 76; RESP 15; TEMP 99; O2SAT 97
[2025-02-20 06:00] VITALS: BP 119/80; PULSE 74; RESP 14; TEMP 98.2; O2SAT 96
[2025-02-20 06:59] LABS: MEAN PLATELET VOLUME 7.2 FL (7.4-10.4); RED CELL DISTRIBUTION WIDTH 15.3 % (11.5-14.5)
[2025-02-20 07:11] LABS: CREATININE 0.97 MG/DL (0.40-0.90); TOTAL CARBON DIOXIDE 25.2 MMOL/L (24-32); eCRCL 61 ML/MIN; eGFR 60 ML/MIN
[2025-02-20 08:00] VITALS: RESP 17; O2SAT 96
[2025-02-20 08:51] LABS: PLATELET ESTIMATE NORMAL
[2025-02-20 10:00] VITALS: BP 113/84; PULSE 71; RESP 20; TEMP 98.1; O2SAT 97
[2025-02-20 15:36] LABS: CREATININE 0.95 MG/DL (0.40-0.90); TOTAL CARBON DIOXIDE 25.5 MMOL/L (24-32); eCRCL 63 ML/MIN; eGFR 61 ML/MIN
--- NOTE | 2025-02-20 16:13 | PROGRESS NOTE- Residence ---
Progress Note - Resident Providers to CC Resident Creating Document: RODRIGO HERNANDEZ, MICKY ~ Antibiotic Timeout Antibiotic Ordered?: No Subjective Patient was seen and examined bedside. She denies further episodes of vomiting. She denies abdominal pain, fever, chills. She had 1 bowel movement today. Objective Vital Signs Date Time Temp Pulse Resp B/P (MAP) Pulse Ox O2 Delivery O2 Flow Rate FiO2 02/20/25 10:00 98.1 71 20 113/84 (94) 97 Room Air 02/20/25 08:00 0.0 Result Diagram: 02/20/25 0609 02/20/25 1504 Awake , alert, and oriented x4, resting comfortably in the bed, in no acute distress HEENT: Atraumatic, normocephalic, EOMI, anicteric sclera ; pink conjunctiva Neck: Trachea midline. Supple, full range of motion, no JVD Cardiac: Regular rhythm, regular rate with no murmurs all over the precordium. Respiratory: Equal breath sounds bilaterally, no tachypnea, no wheezing ,rub or rales, Chest wall is symmetric and without deformity. Gastrointestinal: Abdomen symmetric, non-distended, soft, no tenderness, normal bowel sounds, no masses Musculoskeletal: No pedal edema, no cyanosis Neurological: Speech is clear, alert, and oriented x 4. No motor or sensory deficit, deep tendon reflexes normal, cerebellar intact. Cranial nerves II-XII intact. Skin: Warm and dry Coagulation Studies Laboratory Tests Test 02/17/25 18:28 Prothrombin Time 11.0 SECONDS (9.0-12.0) INR International Normalized Ratio 1.1 INR Activated Partial Thromboplast Time 23 SECONDS (22-32) Coagulation Comments Advance Care Planning Advanced Care plannin - 30 Minutes Assessment Assessment 54-year-old female with history of hyperlipidemia, hypertension, kidney stones, stress incontinence and hypothyroidism came to the ED with complaints of nausea and vomiting for 2 weeks and was admitted for evaluation of acute pancreatitis, UTI and LEANA Plan Plan 1. Intractable Nausea and Vomiting Secondary to Acute Pancreatitis (Likely Gallstone and Alcohol related Pancreatitis, now resolving) Likely secondary to transient gallstone passage; CT abdomen shows unremarkable pancreas, ultrasound shows cholelithiasis with sludge, CBD 3 mm Lipase remains >375 but patient is symptomatically improvedno abdominal pain, tolerating clear liquids Triglycerides, calcium, and LFTs normal Continue clear liquid diet Continue IV Protonix 40 mg daily, Zofran PRN, and NS 150 mL/hr Monitor lipase, symptoms, and hemodynamic status General surgery (Dr. Mayo) consulted; patient prefers to defer cholecystectomy and follow up outpatient after alcohol cessation 2. Cholelithiasis / Possible Gallstone Pancreatitis Ulrasound: gallstones and sludge, normal wall thickness, CBD 3 mm, no biliary dilation or cholecystitis Total bilirubin improved (1.1 0.7 ) Continue conservative management; outpatient surgical follow-up for elective cholecystectomy 3. Urinary Tract Infection E. coli Urine culture: E. coli sensitive to ceftriaxone Continue IV ceftriaxone 1 g daily WBC normalized; monitor for recurrence 4. Possible Enteritis / Ileus CT shows nonspecific fluid-filled small bowel loops (ileus vs enteritis) Continue IV metronidazole 500 mg BID MiraLax given Monitor for bowel function improvement 5. Acute Kidney Injury ATN Initial Cr 3.03 trended down 1.3 after IV fluids; BUN 14 FeNa 2.1% but improved with hydration Continue IV NS 100 mL/hr. Monitor BMP and urine output 6. Severe Dehydration with Hypotension and Tachycardia Secondary to vomiting and poor intake Received 2 L NS + 1 L LR; BP improved Continue IV NS 100 mL/hr, monitor vitals and orthostatics 7. Alcohol Abuse / Chronic Gastritis / Hepatic Steatosis Ultrasound: hepatomegaly and echogenic liver (fatty liver) MCV 111.7, H&H normal Ethanol < 10, urine tox negative account services analyst and substance abuse navigator consulted Alcohol withdrawal protocol in place Continue supportive care and counseling for cessation 8. Hypokalemia and Hypomagnesemia K 2.8, Mg 1.6 (02/19/25). Received IV KCl 40 mEq and IV MgSO4 2 g. Monitor BMP and replete as needed 9. Hypertension BP remains soft; home amlodipine 2.5 mg and ramipril 10 mg held Resume once hemodynamically stable 10. Hypothyroidism TSH normal. Continue levothyroxine 88 mcg daily Code Status: Full code status. DVT Prophylaxis: Heparin SQ Line/tubes: P IV Nutrition: CLD PT: ordered Prognosis: guarded Rodrigo Hernandez MD Internal Medicine Resident, PGY-2 Date of Service: Feb 20, 2025 Billing Provider: ILEANA GROVER MD, GAURAV, RES Feb 20, 2025 16:13
[2025-02-20 18:00] VITALS: BP 110/77; PULSE 75; RESP 18; TEMP 98.1; O2SAT 96
[2025-02-20] MEDS ORDERED: magnesium sulf-water 4G/100mL 100 ML IV PRN (19:30)
[2025-02-20] MEDS ORDERED: potassium Cl 40MEQ/1/2NS 520ml 520 ML IV PRN (19:30)
[2025-02-20] MEDS ORDERED: magnesium sulf-water 2g/50mL 50 ML IV PRN (19:30)
[2025-02-20] MEDS ORDERED: potassium Cl 20 mEq SR tablet PO PRN (19:30)
[2025-02-20] MEDS: magnesium Cl slow-release 64mg tablet PO PRN (20:04)
[2025-02-20] MEDS: potassium Cl 20 mEq SR tablet PO PRN (20:04)
[2025-02-20] MEDS: heparin, porcine 5000 units/ml vial SQ SCH (20:04)
[2025-02-20] MEDS: K and/or MAG REPLACEMENT MC SCH (20:11)
[2025-02-20 22:00] VITALS: BP 127/90; PULSE 71; RESP 15; TEMP 98.7; O2SAT 97
[2025-02-21 06:00] VITALS: BP 119/56; PULSE 69; RESP 15; TEMP 97.9; O2SAT 97
[2025-02-21 06:45] LABS: MEAN PLATELET VOLUME 6.9 FL (7.4-10.4); RED CELL DISTRIBUTION WIDTH 16.3 % (11.5-14.5)
[2025-02-21 06:53] LABS: CREATININE 0.89 MG/DL (0.40-0.90); TOTAL CARBON DIOXIDE 25.4 MMOL/L (24-32); eCRCL 67 ML/MIN; eGFR 66 ML/MIN
[2025-02-21 10:00] VITALS: BP 115/78; PULSE 68; RESP 16; TEMP 98; O2SAT 98
--- NOTE | 2025-02-21 12:05 | PROGRESS NOTE- Residence ---
Progress Note - Resident Providers to CC Resident Creating Document: DARCY GREGORIO RES ~ Antibiotic Timeout Antibiotic Ordered?: Yes Subjective Patient was seen and examined bedside. She denies further episodes of vomiting. She states that she has been tolerating the clear liquid diet. She denies abdominal pain, fever, chills. She has bowel movements. Objective Vital Signs Date Time Temp Pulse Resp B/P (MAP) Pulse Ox O2 Delivery O2 Flow Rate FiO2 02/21/25 10:00 98.0 68 16 115/78 (90) 98 Room Air 02/20/25 20:00 0.0 Result Diagram: 02/21/25 0618 02/21/25 0618 Awake , alert, and oriented x4, resting comfortably in the bed, in no acute distress HEENT: Atraumatic, normocephalic, EOMI, anicteric sclera ; pink conjunctiva Neck: Trachea midline. Supple, full range of motion, no JVD Cardiac: Regular rhythm, regular rate with no murmurs all over the precordium. Respiratory: Equal breath sounds bilaterally, no tachypnea, no wheezing ,rub or rales, Chest wall is symmetric and without deformity. Gastrointestinal: Abdomen symmetric, non-distended, soft, no tenderness, normal bowel sounds, no masses Musculoskeletal: No pedal edema, no cyanosis Neurological: Speech is clear, alert, and oriented x 4. No motor or sensory deficit, deep tendon reflexes normal, cerebellar intact. Cranial nerves II-XII intact. Skin: Warm and dry Coagulation Studies Laboratory Tests Test 02/17/25 18:28 Prothrombin Time 11.0 SECONDS (9.0-12.0) INR International Normalized Ratio 1.1 INR Activated Partial Thromboplast Time 23 SECONDS (22-32) Coagulation Comments Assessment Assessment 54-year-old female with history of hyperlipidemia, hypertension, kidney stones, stress incontinence and hypothyroidism came to the ED with complaints of nausea and vomiting for 2 weeks and was admitted for evaluation of acute pancreatitis, UTI and LEANA Plan Plan 1. Intractable Nausea and Vomiting Secondary to Acute Pancreatitis (Likely Gallstone and Alcohol related Pancreatitis, now resolving) Likely secondary to transient gallstone passage; CT abdomen shows unremarkable pancreas, ultrasound shows cholelithiasis with sludge, CBD 3 mm Lipase remains >375 but patient is symptomatically improvedno abdominal pain, tolerating clear liquids Amylase is 258 Triglycerides, calcium, and LFTs normal Continue clear liquid diet Continue IV Protonix 40 mg daily, Zofran PRN, and NS 150 mL/hr Monitor lipase, symptoms, and hemodynamic status General surgery (Dr. Mayo) consulted; patient prefers to defer cholecystectomy and follow up outpatient after alcohol cessation 02/21/25: Lipase has downtrended to 325 Patient is tolerating clear liquid diet Patient denies nausea, vomiting, abdominal pain Started full liquid diet, will advance as tolerated Outpatient surgical management of cholelithiasis recommended and cessation of alcohol 2. Cholelithiasis / Possible Gallstone Pancreatitis Ulrasound: gallstones and sludge, normal wall thickness, CBD 3 mm, no biliary dilation or cholecystitis Total bilirubin improved (1.1 0.7 ) Continue conservative management; outpatient surgical follow-up for elective cholecystectomy 3. Urinary Tract Infection E. coli Urine culture: E. coli sensitive to ceftriaxone Continue IV ceftriaxone 1 g daily WBC normalized; monitor for recurrence 4. Possible Enteritis / Ileus CT shows nonspecific fluid-filled small bowel loops (ileus vs enteritis) Continue IV metronidazole 500 mg BID Bowel function has improved 5. Acute Kidney Injury ATN Initial Cr 3.03 trended down 1.3 after IV fluids; BUN 14 FeNa 2.1% but improved with hydration Continue IV NS 100 mL/hr. Monitor BMP and urine output 02/21/25 Creatinine has downtrended to 0.89 Continue IV NS at 150 mL/hour Monitor BMP 6. Severe Dehydration with Hypotension and Tachycardia Secondary to vomiting and poor intake Received 2 L NS + 1 L LR; BP improved Continue IV NS 150 mL/hr, monitor vitals and orthostatics 7. Alcohol Abuse / Chronic Gastritis / Hepatic Steatosis Ultrasound: hepatomegaly and echogenic liver (fatty liver) MCV 111.7, H&H normal Ethanol < 10, urine tox negative director of food and nutrition services and substance abuse navigator consulted Alcohol withdrawal protocol in place Continue supportive care and counseling for cessation 02/21/25 H&H is 11.3/32.7, probably due to hemodilution Monitor H&H Stool occult blood negative 8. Hypokalemia and Hypomagnesemia K 2.8, Mg 1.6 (02/19/25). Received IV KCl 40 mEq and IV MgSO4 2 g. Monitor BMP and replete as needed 02/21/25 Potassium is normal-3.9 Continue monitoring BNP and repeat as needed 9. Hypertension BP remains soft; home amlodipine 2.5 mg and ramipril 10 mg held Resume once hemodynamically stable 10. Hypothyroidism TSH normal. Continue levothyroxine 88 mcg daily Code Status: Full code status. DVT Prophylaxis: Heparin SQ Line/tubes: P IV Nutrition: Full liquid diet PT: ordered Prognosis: guarded Disposition: Continue medical management and monitor tolerance to full liquid diet, will advance diet as tolerated, PT eval and DC plan Resident MD attestation: The patient note has been reviewed and supervised by senior residents PGY-2/ PGY-3. Patient was seen, examined and discussed with attending physician. Darcy Gregorio MD Internal Medicine resident, PGY-1 Date of Service: Feb 21, 2025 Billing Provider: ILEANA GROVER MD,DARCY, RES Feb 21, 2025 12:05
[2025-02-21] MEDS ORDERED: FOLI0.4T6 PO (17:00)
[2025-02-21] MEDS ORDERED: THIA50TA10 PO (17:00)
[2025-02-21] MEDS ORDERED: LACT1CAP26 PO (17:00)
[2025-02-21] MEDS ORDERED: CEFD300C3 PO (17:00)
[2025-02-21] MEDS ORDERED: MULT-1074 PO (17:00)
--- NOTE | 2025-02-21 19:23 | DISCHARGE SUMMARY-Residence ---
Discharge Summary Providers to Resident Creating Document: RODRIGO HADLEY, RES ~ Discharge Summary Admission Diagnosis: Pancreatitis Hospital Course DATE OF ADMISSION: 02/17/2025 DATE OF DISCHARGE: 02/21/2025 Discharge Diagnosis\Comment: 1. Intractable Nausea and Vomiting Secondary to Acute Pancreatitis (Likely Gallstone and Alcohol related Pancreatitis, now resolving) 2. Cholelithiasis / Possible Gallstone Pancreatitis 3. Urinary Tract Infection E. coli 4. Possible Enteritis / Ileus 5. Acute Kidney Injury ATN 6. Severe Dehydration with Hypotension and Tachycardia 7. Alcohol Abuse / Chronic Gastritis / Hepatic Steatosis 8. Hypokalemia and Hypomagnesemia 9. Hypertension 10. Hypothyroidism Operations\Procedures: None Consultants: None Complications: None Condition on DC: Stable New Medications: Cefdinir* (Cefdinir*) 300 Mg Capsule 1 CAP PO Q12H for 2 Days, #4 CAP Folic Acid* (Folic Acid*) 0.4 Mg Tablet 1 TAB PO DAILY for 30 Days, #30 TAB Lactobacillus Rhamnosus (Culturelle) 10 Billion Cell Capsule 1 CAP PO DAILY for 30 Days, #30 CAP 0 Refills Multivitamin (Multi-Vitamin Daily) 1 Each Tablet 1 TAB PO DAILY for 30 Days, #30 TAB 0 Refills Thiamine HCl (Vitamin B-1) 50 Mg Tablet 2 TAB PO DAILY for 30 Days, #60 TAB 0 Refills Continued Medications: Amlodipine* (Norvasc*) 2.5 Mg Tablet 2 PO DAILY, TAB Levothyroxine Sodium* (Synthroid*) 88 Mcg Tablet 112 MCG PO DAILY, TAB Progesterone,Micronized (Progesterone) 200 Mg Capsule 1 CAP PO HS, CAP 0 Refills Ramipril* (Altace*) 5 Mg Capsule 2 CAP PO DAILY, CAP Trazodone HCl (Trazodone HCl) 50 Mg Tablet 2 TAB PO HS PRN for sleep for 30 Days, #30 TAB 0 Refills Discharge Summary: HPI as per admitting physician: 54-year-old female with history of hyperlipidemia, hypertension, kidney stones, stress incontinence, hypothyroidism came to the ED with complaints of nausea and vomiting for the past 2 weeks. She states that she has had 3-4 episodes of vomiting everyday and has not been able to keep anything down due to nausea, which has worsened in the past few days. She states that the vomit is clear and mildly yellow. She has heartburn for the past 2 weeks. She denies eating outside, recent travel, sick contacts, recent change in medications. She is an alcoholic and takes 1-2 drinks per day since 2019 and the last drink was 4 days ago. She denies abdominal pain. She states that she feels dizzy due to weakness and denies falls. She has been having chills. She states that her urine output is normal but has horrible odour and is cloudy. she denies burning micturition, frequency, urgency. She states that she has history of kidney stones and had a sling surgery for incontinence. She denies back pain, chest pain, palpitations, shortness of breath, swelling or pain in legs, headache, confusion. Her primary care physician is Dr. Yanci Lujan. She lives with her at home and she ambulates independently. Hospital course: The patient was admitted with intractable nausea and vomiting secondary to acute pancreatitis, likely gallstone-induced given the presence of cholelithiasis with sludge and prior transient elevation of bilirubin. On admis curtis, lipase was >375 and WBC 13.[address] abdomen/pelvis showed an unremarkable pancreas, while ultrasound confirmed gallstones and hepatic steatosis without biliary dilation or cholecystitis. The patient was managed conservatively with bowel rest, IV hydration (NS 068000 mL/hr), IV Protonix, and antiemetics (Zofran). During hospitalization, the patients nausea and vomiting improved, and lipase trended down to 325 with resolution of leukocytosis. She tolerated a clear liquid diet, which was advanced as tolerated. Dr. Mayo (General Surgery) was consulted for elective cholecystectomy; however, the patient opted to defer surgery and follow up as an outpatient after abstaining from alcohol. Lipid panel and calcium were normal, and there was no evidence of hypertriglyceridemia or biliary obstruction. Patient also had urinary tract infection due to E. coli, treated with IV ceftriaxone 1 g daily, to which the organism was sensitive. A possible enteritis/ileus noted on CT was managed with IV metronidazole and bowel regimen (MiraLax), with gradual improvement in bowel function. The patient developed acute kidney injury (Cr 3.03 on admission) secondary to severe dehydration, which improved to 1.3 following aggressive IV hydration. FeNa was 2.1%, but improved gradually. The patient also had hypokalemia (2.8) and hypomagnesemia (1.6), which were appropriately repleted. Ultrasound findings of hepatic steatosis and elevated MCV (111.7) were consistent with chronic alcohol use; social work and substance abuse navigator were consulted, and alcohol withdrawal protocol was initiated. Blood pressure remained soft throughout hospitalization, so antihypertensive medications (amlodipine, ramipril) were held. Hypothyroidism was stable on levothyroxine 88 mcg daily. By discharge, the patient was hemodynamically stable, tolerating oral intake, with improving laboratory parameters and resolution of gastrointestinal symptoms. She was counseled on alcohol cessation, hydration, and outpatient follow-up with general surgery and primary care for further management. Physical examination today: Awake , alert, and oriented x4, resting comfortably in the bed, in no acute distress HEENT: Atraumatic, normocephalic, EOMI, anicteric sclera ; pink conjunctiva Neck: Trachea midline. Supple, full range of motion, no JVD Cardiac: Regular rhythm, regular rate with no murmurs all over the precordium. Respiratory: Equal breath sounds bilaterally, no tachypnea, no wheezing ,rub or rales, Chest wall is symmetric and without deformity. Gastrointestinal: Abdomen symmetric, non-distended, soft, no tenderness, normal bowel sounds, no masses Musculoskeletal: No pedal edema, no cyanosis Neurological: Speech is clear, alert, and oriented x 4. No motor or sensory deficit, deep tendon reflexes normal, cerebellar intact. Cranial nerves II-XII intact. Skin: Warm and dry Imaging: Abdomen/pelvis CT: 1. Distended gallbladder with punctate calcified gallstone visualized. Correlate with clinical findings. If clinically indicated, ultrasound could be obtained to further evaluate. 2. Hepatic steatosis. 3. Bilateral nonobstructing renal calculi. No hydronephrosis or obstructing calculi. 4. Nonspecific nondilated fluid-filled small bowel loops. Findings may be seen with ileus or enteritis in the appropriate clinical setting. No small bowel obstruction. 5. Mild edema in the abdominal mesentery, may be inflammatory in nature. Correlate with clinical findings. Small amount of free fluid in the pelvis. Chest x-ray: No acute intrathoracic process. Abdominal ultrasound: Cholelithiasis and sludge Echogenic liver which can be seen with hepatic steatosis, cirrhosis. Hepatomegaly Echocardiogram: Normal LV size and function. Mild concentric hypertrophy. LVEF is 65-70%. Right ventricle is mildly dilated with normal contractility. The left atrium size is normal. Trileaflet AV appears mildly sclerotic without stenosis. No insufficiency. Mild mitral annular calcification without stenosis. Trace regurgitation. The tricuspid valve is normal in structure with trace regurgitation. Normal pericardium. No effusion. Laboratory Tests Test 02/19/25 20:24 02/20/25 06:09 02/20/25 15:04 02/21/25 06:18 Glucometer 91 mg/dl White Blood Count 4.0 X10'3 3.7 X10'3 Red Blood Count 2.78 X10'6 2.92 X10'6 Hemoglobin 11.0 g/dl 11.3 g/dl Hematocrit 30.9 % 32.7 % Mean Corpuscular Volume 111.0 FL 112.1 FL Mean Corpuscular Hemoglobin 39.4 PG 38.6 PG Mean Corpuscular Hemoglobin Concent 35.5 g/dL 34.5 g/dL Red Cell Distribution Width 15.3 % 16.3 % Platelet Count 149 X10'3 177 X10'3 Mean Platelet Volume 7.2 FL 6.9 FL Neutrophils (%) (Auto) 67.6 % 67.9 % Lymphocytes (%) (Auto) 18.7 % 18.1 % Monocytes (%) (Auto) 11.0 % 10.5 % Eosinophils (%) (Auto) 1.8 % 2.5 % Basophils (%) (Auto) 0.9 % 1.0 % Neutrophils # (Auto) 2.7 X10'3 2.5 X10'3 Lymphocytes # (Auto) 0.8 X10'3 0.7 X10'3 Monocytes # (Auto) 0.4 X10'3 0.4 X10'3 Eosinophils # (Auto) 0.1 X10'3 0.1 X10'3 Basophils # (Auto) 0.0 X10'3 0.0 X10'3 CBC Comment Platelet Estimate Normal Red Blood Cell Morphology Perf Basophilic Stippling Macrocytosis 2+ Schistocytes Few Sodium Level 141 MMOL/L 140 MMOL/L 141 MMOL/L Potassium Level 3.8 MMOL/L 3.4 MMOL/L 3.9 MMOL/L Chloride Level 108 MMOL/L 107 MMOL/L 110 MMOL/L Carbon Dioxide Level 25.2 MMOL/L 25.5 MMOL/L 25.4 MMOL/L Anion Gap 8 8 6 Blood Urea Nitrogen 6 MG/DL 4 MG/DL 3 MG/DL Creatinine 0.97 MG/DL 0.95 MG/DL 0.89 MG/DL Estimated GFR/1.73 m2 60 ML/MIN 61 ML/MIN 66 ML/MIN BUN/Creatinine Ratio 6.2 4.2 3.4 Glucose Level 90 MG/DL 101 MG/DL 91 MG/DL Calcium Level 7.5 MG/DL 7.2 MG/DL 7.3 MG/DL Magnesium Level 1.5 MG/DL 1.8 MG/DL 1.6 MG/DL Albumin 2.8 G/DL 2.9 G/DL 2.9 G/DL Lipase > 375 U/L 325 U/L Chemistry Comments Total Bilirubin 0.3 MG/DL Aspartate Amino Transf (AST/SGOT) 18 U/L Alanine Aminotransferase (ALT/SGPT) 13 U/L Alkaline Phosphatase 32 IU/L Total Protein 6.0 G/DL Globulin 3.1 G/DL Albumin/Globulin Ratio 0.9 Test 02/21/25 15:02 Lipase > 375 U/L Advise on discharge: Follow-up with PCP in 1-2 weeks Follow up with surgeon for elective cholecystectomy Recommend to stop alcohol immediately Continue cefdinir 300 mg for 2 days Call 911 or come to ER for further episodes of abdominal pain, nausea, vomiting, syncope etc *Problems/Diagnosis: (1) Pancreatitis Status: Acute Total Time Spent on D/C: > 30 Minutes Date of Service: Feb 21, 2025 Billing Provider: ILEANA GROVER MD Problem Qualifiers (1) Pancreatitis: Chronicity: acute Pancreatitis type: unspecified pancreatitis type Acute pancreatitis complication: unspecified Qualified Codes: K85.90 - Acute pancreatitis without necrosis or infection, unspecified RODRIGO HADLEY, RES Feb 21, 2025 19:16
== END 2025-02-21 17:20 | disposition home or self-care (01) | DRG 438 ==
LOC: ER 10:54 → ED HOLD 18:06 → ORTHO 4S 20:52
PROVIDERS: ADMIT Family Medicine; ATTEND Family Medicine
DX: K85.10 Biliary acute pancreatitis without necrosis or infection (principal); N17.0 Acute kidney failure with tubular necrosis; N39.0 Urinary tract infection, site not specified; K56.7 Ileus, unspecified; K85.20 Alcohol induced acute pancreatitis without necrosis or infection; N20.0 Calculus of kidney; E86.0 Dehydration; K80.20 Calculus of gallbladder without cholecystitis without obstruction; F10.10 Alcohol abuse, uncomplicated; E03.9 Hypothyroidism, unspecified; E78.5 Hyperlipidemia, unspecified; I10 Essential (primary) hypertension; K76.0 Fatty (change of) liver, not elsewhere classified; K29.50 Unspecified chronic gastritis without bleeding; E87.6 Hypokalemia; E83.42 Hypomagnesemia; K52.9 Noninfective gastroenteritis and colitis, unspecified; B96.20 Unspecified Escherichia coli [E. coli] as the cause of diseases classified elsewhere; K21.9 Gastro-esophageal reflux disease without esophagitis
CPT/HCPCS: 36415; 71045; 74176; 76700; 80048; 80053; 80061; 80305; 80320; 81001; 82150; 82248; 82272; 82570; 82607; 82948; 83036; 83605; 83615; 83690; 83735; 83880; 83930; 83935; 84100; 84145; 84156; 84300; 84443; 84484; 85008; 85025; 85610; 85730; 87040; 87077; 87081; 87088; 87186; 87207; 93005; 93306; 96365; 97161; 97530; 99291; A6258; G0378; J0696; J1644; J2470; J3411; J3480; J3490; J7030; J7120